=== PATIENT | male | born 1950 | race Caucasian/White ===

== ENCOUNTER 2017-05-16 12:54 | Inpatient (IN) | payer OTHER, MEDICARE ==
[~2017-05-16] VITALS: Ht 182.9 cm; Wt 97.3 kg
[2017-05-16] MEDS ORDERED: LACTATED RINGERS 1,000 ML IV SCH (13:44)
[2017-05-16 13:51] VITALS: BP 146/96
[2017-05-16] MEDS ORDERED: glipizide PO (13:51)
[2017-05-16] MEDS ORDERED: METF500T4 PO (13:51)
[2017-05-16] MEDS ORDERED: FINA5TAB4 PO (13:51)
[2017-05-16] MEDS ORDERED: ALLO300T PO (13:51)
[2017-05-16] MEDS ORDERED: LISI40TA PO (13:51)
[2017-05-16] MEDS ORDERED: TAMS-11 PO (13:51)
[2017-05-16] MEDS ORDERED: SIMV20TA3 PO (13:51)
[2017-05-16] MEDS: PLEASE ENTER HEIGHT AND WEIGHT MC SCH ×2 (14:00→21:22)
[2017-05-16] MEDS ORDERED: FENTANYL PF 250 MCG/5ML ONE (15:04)
[2017-05-16] MEDS ORDERED: CEFAZOLIN 1,000 MG ONE (15:13)
[2017-05-16] MEDS ORDERED: ONDANSETRON 2MG/ML, 2ML ONE (15:13)
[2017-05-16] MEDS ORDERED: PROPOFOL 10 MG/ML, 20ML ONE (15:13)
[2017-05-16] MEDS ORDERED: DEXAMETHASONE 4 MG/ML, 1ML ONE (15:13)
[2017-05-16] MEDS ORDERED: LORazepam 2 MG/ML, 1ML IVPush PRN (16:00)
[2017-05-16] MEDS ORDERED: ALBUTEROL SULFATE 2.5 MG/3 ML NPPB PRN (16:00)
[2017-05-16] MEDS ORDERED: OXYcodone 5 MG/5 ML ORAL.SOL UDC PO PRN (16:00)
[2017-05-16] MEDS ORDERED: hydrALAzine 20 MG/ML, 1ML IV PRN (16:00)
[2017-05-16] MEDS ORDERED: MEPERIDINE/PF 25MG/0.5ML IVPush PRN (16:00)
[2017-05-16] MEDS ORDERED: PROMETHAZINE 25 MG/ML, 1ML IV PRN (16:00)
[2017-05-16] MEDS ORDERED: ACETAMINOPHEN 325 MG TABLET PO PRN ×2 (16:00→18:30)
[2017-05-16] MEDS: FENTANYL PF 100 MCG/2ML IV PRN ×2 (17:05→17:15)
[2017-05-16] MEDS ORDERED: OXYcodone 5 MG/5 ML ORAL.SOL UDC ONE (17:07)
[2017-05-16] MEDS ORDERED: ACETAMINOPHEN 650 MG/20.3 ML UDC ONE (17:07)
[2017-05-16] MEDS ORDERED: FENTANYL PF 100 MCG/2ML ONE (17:07)
[2017-05-16] MEDS ORDERED: hydrALAzine 20 MG/ML, 1ML ONE (17:33)
[2017-05-16] MEDS ORDERED: ONDANSETRON 2MG/ML, 2ML IV PRN (18:30)
[2017-05-16] MEDS: GLIPIZIDE MC SCH (18:30)
[2017-05-16] MEDS ORDERED: OXYcodone/APAP 5/325MG TABLET PO PRN (18:30)
[2017-05-16] MEDS ORDERED: HYDROcodone/APAP 5/325 TABLET PO PRN (18:30)
[2017-05-16] MEDS ORDERED: MORPHINE SULFATE 4 MG/ML, 1ML IV PRN (18:30)
[2017-05-16] MEDS ORDERED: OPIUM/BELLADONNA SUPP.RECT 16.2-60 MG PR PRN (18:30)
[2017-05-16] MEDS: D5%-LACTATED RINGERS 1,000 ML IV SCH (18:44)
[2017-05-16 20:05] VITALS: BP 142/63
[2017-05-16] MEDS ORDERED: SIMVASTATIN 20 MG TABLET PO SCH (21:00)
[2017-05-16] MEDS ORDERED: ALLOPURINOL 300 MG TABLET PO SCH (21:00)
[2017-05-17 00:10] VITALS: BP 130/76
[2017-05-17] MEDS: GLIPIZIDE MC SCH (00:20)
[2017-05-17 04:05] VITALS: BP 134/75
[2017-05-17] MEDS: PLEASE ENTER HEIGHT AND WEIGHT MC SCH (04:28)
[2017-05-17] MEDS: D5%-LACTATED RINGERS 1,000 ML IV SCH (04:28)
[2017-05-17 07:14] VITALS: BP 132/76
[2017-05-17] MEDS ORDERED: metFORMIN 500 MG TABLET PO SCH (08:00)
[2017-05-17] MEDS ORDERED: LISINOPRIL 20 MG TABLET PO SCH (09:00)
[2017-05-17] MEDS ORDERED: OXYC-302 PO (11:06)
== END 2017-05-17 11:19 | disposition home or self-care (01) | DRG 666 ==
LOC: OUT 12:54 → 4NOR 18:17 → OUT 23:23 → 4NOR 23:25 → DCLOUNGE 05-17 11:04
PROVIDERS: ADMIT Urology; ATTEND Urology
PROC: 0VB08ZZ Excision of Prostate, Via Natural or Artificial Opening Endoscopic (ICD-10-PCS; principal; 2017-05-16 15:00)
DX: N32.0 Bladder-neck obstruction (principal); N13.8 Other obstructive and reflux uropathy; N40.1 Benign prostatic hyperplasia with lower urinary tract symptoms
CPT/HCPCS: 82962; 88305; 93005; J0690; J1100; J2405; J2704; J3010; J0360; J7120; J7121

== ENCOUNTER → 2017-12-27 | Outpatient (CLI) | payer MEDICARE ==
[~2017-12-27] MED LIST: ALLO300T PO; FINA5TAB4 PO; GLIP10TA13 PO; LISI40TA PO; METF500T17 PO; NITR50CA PO; OXYC-302 PO; SIMV20TA3 PO; SIMV40TA3 PO; TAMS-11 PO; glipizide PO
[2017-12-27 11:27] LABS: BASOPHILS # (AUTO) 0.05 x10^3/uL (0-0.1); BASOPHILS % (AUTO) 1 % (0-1); EOSINOPHILS # (AUTO) 0.37 x10^3/uL (0-0.4); EOSINOPHILS % (AUTO) 5 % (1-7); LYMPHOCYTES # (AUTO) 2.62 x10^3/uL (1-3.4); LYMPHOCYTES % (AUTO) 34 % (22-44); MD NO; MEAN CORPUSCULAR HEMOGLOBIN 29.2 pg (27.5-34.5); MEAN CORPUSCULAR HGB CONC 33.8 g/dL (33.2-36.2); MEAN CORPUSCULAR VOLUME 86.3 fL (81-97); MEAN PLATELET VOLUME 11.1 fL (7.4-10.4); MONOCYTES # (AUTO) 0.59 x10^3/uL (0.2-0.8); MONOCYTES % (AUTO) 8 % (2-9); NEUTROPHILS % (AUTO) 54 % (42-75); PLATELET COUNT 211 x10^3/uL (130-400); RED BLOOD COUNT 5.18 x10^6/uL (4.38-5.82); RED CELL DISTRIBUTION WIDTH 15.3 % (9.4-14.8)
[2017-12-27 11:38] LABS: MICROSCOPIC INDICATED
[2017-12-27 11:39] LABS: ALBUMIN 3.7 g/dL (3.4-5.0); ANION GAP 7 mmol/L (5-15); CALCIUM 9.9 mg/dL (8.5-10.1); CHLORIDE 105 mmol/L (98-107)
[2017-12-27 11:42] LABS: ALANINE AMINOTRANSFERASE 56 U/L (12-78); ALKALINE PHOSPHATASE 83 U/L (45-117); BILIRUBIN,TOTAL 0.6 mg/dL (0.2-1.0); CREATININE 1.15 mg/dL (0.7-1.3); TOTAL PROTEIN 8.8 g/dL (6.4-8.2)
== END | disposition home or self-care (01) ==
LOC: STAR 10:12
PROVIDERS: ATTEND Urology
DX: Z01.818 Encounter for other preprocedural examination (principal); N40.1 Benign prostatic hyperplasia with lower urinary tract symptoms
CPT/HCPCS: 36415; 80053; 81001; 85025; 87086; 93005

== ENCOUNTER 2018-01-02 18:23 | Emergency (ER) | payer MEDICARE, OTHER ==
[~2018-01-02] VITALS: Ht 182.9 cm; Wt 102.2 kg
[2018-01-02 18:28] VITALS: BP 117/75
[2018-01-02 19:06] LABS: BASOPHILS # (AUTO) 0.05 x10^3/uL (0-0.1); BASOPHILS % (AUTO) 0 % (0-1); EOSINOPHILS # (AUTO) 0.17 x10^3/uL (0-0.4); EOSINOPHILS % (AUTO) 1 % (1-7); LYMPHOCYTES # (AUTO) 2.84 x10^3/uL (1-3.4); LYMPHOCYTES % (AUTO) 19 % (22-44); MD NO; MEAN CORPUSCULAR HEMOGLOBIN 29.1 pg (27.5-34.5); MEAN CORPUSCULAR HGB CONC 33.9 g/dL (33.2-36.2); MEAN CORPUSCULAR VOLUME 85.9 fL (81-97); MEAN PLATELET VOLUME 10.7 fL (7.4-10.4); MONOCYTES # (AUTO) 1.31 x10^3/uL (0.2-0.8); MONOCYTES % (AUTO) 9 % (2-9); NEUTROPHILS # (AUTO) 10.86 x10^3/uL (1.8-6.8); NEUTROPHILS % (AUTO) 71 % (42-75); PLATELET COUNT 227 x10^3/uL (130-400); RED BLOOD COUNT 4.87 x10^6/uL (4.38-5.82); RED CELL DISTRIBUTION WIDTH 15.6 % (9.4-14.8)
[2018-01-02 19:10] LABS: ALBUMIN 3.5 g/dL (3.4-5.0); ANION GAP 8 mmol/L (5-15); CALCIUM 9.5 mg/dL (8.5-10.1); CHLORIDE 103 mmol/L (98-107); CREATININE 1.71 mg/dL (0.7-1.3)
[2018-01-02] MEDS ORDERED: SODIUM CHLORIDE 0.9% 1,000ML IVBOLUS ONE (20:30)
[2018-01-02 21:13] LABS: CULTURE INDICATED? YES; MICROSCOPIC INDICATED
== END 2018-01-02 21:46 | disposition home or self-care (01) ==
LOC: ED 20:34
DX: R31.0 Gross hematuria (principal); D72.829 Elevated white blood cell count, unspecified; N28.9 Disorder of kidney and ureter, unspecified; E11.9 Type 2 diabetes mellitus without complications
CPT/HCPCS: 36415; 80048; 81001; 82040; 85025; 87086; 99284; J7030

== ENCOUNTER 2018-02-05 13:13 | Inpatient (IN) | payer MEDICARE, OTHER ==
[~2018-02-05] VITALS: Ht 182.9 cm; Wt 95.2 kg
[2018-02-05 17:58] VITALS: BP 138/81
[2018-02-05 19:45] VITALS: BP 139/86
[2018-02-05] MEDS: PIPERACILLIN/TAZO/PMX 3.375GM 50 ML IV SCH (20:10)
[2018-02-05] MEDS: SODIUM CHLORIDE 0.9% 1,000 ML IV SCH (20:11)
[2018-02-05] MEDS: INSULIN LISPRO 100 UNITS/ML, PEN SQ-INSULIN SCH (21:06)
[2018-02-06 01:23] VITALS: BP 139/83
[2018-02-06] MEDS: PIPERACILLIN/TAZO/PMX 3.375GM 50 ML IV SCH ×4 (02:14→18:25)
[2018-02-06 05:46] LABS: BASOPHILS % (AUTO) 1 % (0-1); EOSINOPHILS # (AUTO) 0.95 x10^3/uL (0-0.4); EOSINOPHILS % (AUTO) 7 % (1-7); LYMPHOCYTES # (AUTO) 2.35 x10^3/uL (1-3.4); LYMPHOCYTES % (AUTO) 18 % (22-44); MD NO; MEAN CORPUSCULAR HEMOGLOBIN 27.1 pg (27.5-34.5); MEAN CORPUSCULAR HGB CONC 32.7 g/dL (33.2-36.2); MONOCYTES # (AUTO) 0.86 x10^3/uL (0.2-0.8); MONOCYTES % (AUTO) 7 % (2-9); NEUTROPHILS # (AUTO) 8.84 x10^3/uL (1.8-6.8); NEUTROPHILS % (AUTO) 68 % (42-75); PLATELET COUNT 358 x10^3/uL (130-400); RED BLOOD COUNT 4.86 x10^6/uL (4.38-5.82); RED CELL DISTRIBUTION WIDTH 15.9 % (9.4-14.8)
[2018-02-06 05:55] LABS: ALBUMIN 2.2 g/dL (3.4-5.0); ANION GAP 7 mmol/L (5-15); CALCIUM 9.9 mg/dL (8.5-10.1); CHLORIDE 108 mmol/L (98-107)
[2018-02-06 06:01] LABS: ALANINE AMINOTRANSFERASE 47 U/L (12-78); ALKALINE PHOSPHATASE 127 U/L (45-117); BILIRUBIN,TOTAL 0.3 mg/dL (0.2-1.0); CREATININE 1.12 mg/dL (0.7-1.3)
[2018-02-06] MEDS: INSULIN LISPRO 100 UNITS/ML, PEN SQ-INSULIN SCH ×4 (06:25→22:27)
[2018-02-06 07:50] VITALS: BP 135/81
[2018-02-06] MEDS: SODIUM CHLORIDE 0.9% 1,000 ML IV SCH (09:05)
[2018-02-06] MEDS ORDERED: DEXAMETHASONE 4 MG/ML, 1ML ONE (14:35)
[2018-02-06] MEDS ORDERED: METOCLOPRAMIDE 5 MG/ML, 2ML ONE (14:35)
[2018-02-06] MEDS ORDERED: SUCCINYLCHOLINE 20 MG/ML, 10ML ONE (14:35)
[2018-02-06] MEDS ORDERED: PROPOFOL 10 MG/ML, 20ML ONE (14:35)
[2018-02-06] MEDS ORDERED: ONDANSETRON 2MG/ML, 2ML ONE (14:35)
[2018-02-06] MEDS ORDERED: INDOMETHACIN 50 MG SUPP.RECT ONE (16:30)
[2018-02-06] MEDS ORDERED: INDOMETHACIN 50 MG SUPP.RECT PR ONE (18:00)
[2018-02-06 18:45] VITALS: BP 158/88
[2018-02-06 23:44] VITALS: BP 129/80
[2018-02-07] MEDS: PIPERACILLIN/TAZO/PMX 3.375GM 50 ML IV SCH ×4 (00:36→20:09)
[2018-02-07 03:51] VITALS: BP 116/74
[2018-02-07] MEDS: SODIUM CHLORIDE 0.9% 1,000 ML IV SCH ×2 (04:05→21:46)
[2018-02-07 06:16] LABS: BASOPHILS # (AUTO) 0.03 x10^3/uL (0-0.1); BASOPHILS % (AUTO) 0 % (0-1); EOSINOPHILS # (AUTO) 0.17 x10^3/uL (0-0.4); EOSINOPHILS % (AUTO) 1 % (1-7); LYMPHOCYTES # (AUTO) 1.77 x10^3/uL (1-3.4); LYMPHOCYTES % (AUTO) 12 % (22-44); MD NO; MEAN CORPUSCULAR HEMOGLOBIN 27.2 pg (27.5-34.5); MEAN CORPUSCULAR HGB CONC 33.3 g/dL (33.2-36.2); MEAN CORPUSCULAR VOLUME 81.6 fL (81-97); MEAN PLATELET VOLUME 9.4 fL (7.4-10.4); MONOCYTES # (AUTO) 0.83 x10^3/uL (0.2-0.8); MONOCYTES % (AUTO) 6 % (2-9); NEUTROPHILS # (AUTO) 11.73 x10^3/uL (1.8-6.8); NEUTROPHILS % (AUTO) 81 % (42-75); PLATELET COUNT 380 x10^3/uL (130-400); RED BLOOD COUNT 4.54 x10^6/uL (4.38-5.82); RED CELL DISTRIBUTION WIDTH 15.1 % (9.4-14.8)
[2018-02-07 06:28] LABS: ALANINE AMINOTRANSFERASE 52 U/L (12-78); ALBUMIN 2.2 g/dL (3.4-5.0); ANION GAP 6 mmol/L (5-15); CALCIUM 8.9 mg/dL (8.5-10.1); CHLORIDE 107 mmol/L (98-107); CREATININE 1.23 mg/dL (0.7-1.3)
[2018-02-07 06:30] LABS: ALKALINE PHOSPHATASE 119 U/L (45-117); BILIRUBIN,TOTAL 0.3 mg/dL (0.2-1.0); TOTAL PROTEIN 7.3 g/dL (6.4-8.2)
[2018-02-07 08:00] VITALS: BP 131/68
[2018-02-07] MEDS ORDERED: INSULIN LISPRO 100 UNITS/ML, PEN SQ-INSULIN SCH (09:00)
[2018-02-07] MEDS ORDERED: ONDANSETRON 2MG/ML, 2ML ONE (09:49)
[2018-02-07] MEDS ORDERED: ONDANSETRON 2MG/ML, 2ML IVPush PRN (10:00)
[2018-02-07 11:20] LABS: INTERNATIONAL NORMALIZED RATIO 1.05 (0.93-1.1); PROTHROMBIN TIME 11.1 Seconds (9.6-11.5)
[2018-02-07] MEDS ORDERED: CATHFLO-ALTEPLASE 2 MG/2 ML CATHFLUSH ONE (11:30)
[2018-02-07] MEDS ORDERED: LIDOCAINE-MPF 1%, 5ML ONE ×2 (11:51→12:53)
[2018-02-07] MEDS ORDERED: MIDAZOLAM 1 MG/ML, 5ML ONE (12:07)
[2018-02-07] MEDS ORDERED: NALOXONE 1 MG/ML, 2ML ONE (12:07)
[2018-02-07] MEDS ORDERED: FLUMAZENIL 0.1 MG/1 ML, 5ML ONE (12:07)
[2018-02-07] MEDS ORDERED: FENTANYL PF 100 MCG/2ML ONE (12:07)
[2018-02-07] MEDS ORDERED: VISIPAQUE 270 MG/ML, 50ML BOTTLE ONE (13:13)
[2018-02-07 13:46] VITALS: BP 110/65
[2018-02-07] MEDS: INSULIN LISPRO 100 UNITS/ML, PEN SQ-INSULIN SCH ×2 (15:43→21:42)
[2018-02-07 20:00] VITALS: BP 121/63
[2018-02-08] MEDS: PIPERACILLIN/TAZO/PMX 3.375GM 50 ML IV SCH ×2 (01:41→08:09)
[2018-02-08] MEDS ORDERED: CATHFLO-ALTEPLASE 2 MG/2 ML CATHFLUSH ONE (02:00)
[2018-02-08 03:00] VITALS: BP 123/68
[2018-02-08 04:24] LABS: BASOPHILS % (AUTO) 1 % (0-1); EOSINOPHILS # (AUTO) 0.79 x10^3/uL (0-0.4); EOSINOPHILS % (AUTO) 7 % (1-7); LYMPHOCYTES # (AUTO) 2.51 x10^3/uL (1-3.4); LYMPHOCYTES % (AUTO) 22 % (22-44); MD NO; MEAN CORPUSCULAR HEMOGLOBIN 27.4 pg (27.5-34.5); MEAN CORPUSCULAR HGB CONC 33.5 g/dL (33.2-36.2); MEAN CORPUSCULAR VOLUME 81.6 fL (81-97); MEAN PLATELET VOLUME 9.4 fL (7.4-10.4); MONOCYTES # (AUTO) 0.61 x10^3/uL (0.2-0.8); MONOCYTES % (AUTO) 5 % (2-9); NEUTROPHILS # (AUTO) 7.23 x10^3/uL (1.8-6.8); NEUTROPHILS % (AUTO) 64 % (42-75); PLATELET COUNT 328 x10^3/uL (130-400); RED BLOOD COUNT 4.18 x10^6/uL (4.38-5.82); RED CELL DISTRIBUTION WIDTH 15.5 % (9.4-14.8)
[2018-02-08] MEDS: INSULIN LISPRO 100 UNITS/ML, PEN SQ-INSULIN SCH ×2 (06:27→12:05)
[2018-02-08 07:19] VITALS: BP 121/67
[2018-02-08] MEDS ORDERED: AMOX1TAB64 PO (10:50)
== END 2018-02-08 13:20 | disposition home health service (06) | DRG 393 ==
LOC: 4NOR 16:45
PROVIDERS: ADMIT Family Medicine; ATTEND Family Medicine
PROC: BF131ZZ Fluoroscopy of Gallbladder and Bile Ducts using Low Osmolar Contrast (ICD-10-PCS; 2018-02-06)
PROC: BF43ZZZ Ultrasonography of Gallbladder and Bile Ducts (ICD-10-PCS; 2018-02-06)
PROC: 0F7D8DZ Dilation of Pancreatic Duct with Intraluminal Device, Via Natural or Artificial Opening Endoscopic (ICD-10-PCS; principal; 2018-02-06 14:30)
DX: K91.89 Other postprocedural complications and disorders of digestive system (principal); J18.9 Pneumonia, unspecified organism; E11.65 Type 2 diabetes mellitus with hyperglycemia; E78.5 Hyperlipidemia, unspecified; I10 Essential (primary) hypertension; K57.10 Diverticulosis of small intestine without perforation or abscess without bleeding; M10.9 Gout, unspecified; N40.0 Benign prostatic hyperplasia without lower urinary tract symptoms; Z79.4 Long term (current) use of insulin; Z87.440 Personal history of urinary (tract) infections; Z90.79 Acquired absence of other genital organ(s); E11.9 Type 2 diabetes mellitus without complications; Y83.6 Removal of other organ (partial) (total) as the cause of abnormal reaction of the patient, or of later complication, without mention of misadventure at the time of the procedure; Y95 Nosocomial condition
CPT/HCPCS: 36415; 47534; 71045; 71260; 74328; 80053; 82962; 83735; 84100; 85025; 85610; 93005; 99156; 99157; C1894; G0378; J1100; J2250; J2405; J2543; J2704; J2997; J3010; Q9966; Q9967; C1769; C2625; J0330; J1815; J2310; J2765; J7030